=== PATIENT | male | born 1970 | race Caucasian/White ===

== ENCOUNTER 2018-01-27 12:30 | Emergency (ER) | payer BC ==
[2018-01-27 12:59] VITALS: BP 125/95; PULSE 81; TEMP 98.2; BMI 30.5
[2018-01-27] MEDS ORDERED: DIPHTH,PERTUSS(ACELL),TET 0.5 ML DISP.SYRIN IM ONE (13:03)
--- NOTE | 2018-01-27 13:23 | PDOC ---
Attending Attestation - Resident Resident Name: Corey Linton - ED Attending Attestation I have performed the following: I have examined & evaluated the patient, The case was reviewed & discussed with the resident, I agree w/resident's findings & plan, Exceptions are as noted - HPI HPI: 47 yo M presents with R index finger lacerations after he was using a grain trimmer. He states that he hit a branch, the jason kicked back and he felt it hit his finger. He presents to ED with multiple lacerations to the finger, no other injuries. - Physicial Exam PE: GENERAL: Awake, alert, and fully oriented, in no acute distress HEAD: No signs of trauma EYES: PERRLA, EOMI, sclera anicteric, conjunctiva clear ENT: Auricles normal inspection, hearing grossly normal, nares patent, oropharynx clear without exudates. Moist mucosa EXTREMITIES: Normal range of motion, no edema. No clubbing or cyanosis. No cords, erythema, or tenderness NEUROLOGICAL: Cranial nerves II through XII grossly intact. Normal speech, normal gait SKIN: Warm, Dry, normal turgor. R index finger with 4 lacerations, small areas of numbness between the lesions. Sensation to the fingertip intact. Tendon function intact. - Medical Decision Making Complicated lac repair as a result of the lacerations between very close together and at oblique angles to each other. +Hemostasis. Patient tolerated well. Small tuft fx, will treat with abx. Wound check within 48 hrs.
--- NOTE | 2018-01-27 13:25 | PDOC ---
History of Present Illness - General Chief Complaint: Laceration Stated Complaint: LACERATION Time Seen by Provider: 01/27/18 12:50 History Source: Patient Exam Limitations: No Limitations - History of Present Illness Initial Comments: 01/27/18 13:20 Patient is a 47M with a medical history of HTN here today complaining of a laceration to his finger. He was trimming a hedge with a hedgetrimmer when he hit a branch and the machine jumped back hitting his finger. He is complaining of pain to the finger and associated numbness on the medial aspect of his finger. Past History - Past Medical History Allergies/Adverse Reactions: Allergies Allergy/AdvReac Type Severity Reaction Status Date / Time No Known Allergies Allergy Verified 12/29/17 11:38 Home Medications: Ambulatory Orders Amlodipine Besylate [Norvasc -] 10 mg PO DAILY 12/29/17 Amox-Tr/K Cl [Augmentin - 875Mg Tablet] 1 tab PO BID #14 tablet 01/27/18 COPD: No HTN: Yes - Suicide/Smoking/Psychosocial Hx Smoking History: Never smoked Hx Alcohol Use: Yes Drug/Substance Use Hx: No Substance Use Type: None Review of Systems - Review of Systems Comments:: 01/27/18 13:23 GENERAL/CONSTITUTIONAL: No fever or chills. No weakness. HEAD, EYES, EARS, NOSE AND THROAT: No change in vision. No ear pain or discharge. No sore throat. CARDIOVASCULAR: No chest pain or shortness of breath RESPIRATORY: No cough, wheezing, or hemoptysis. GASTROINTESTINAL: No nausea, vomiting, diarrhea or constipation. GENITOURINARY: No dysuria, frequency, or change in urination. MUSCULOSKELETAL: + finger pain. No neck or back pain. SKIN: No rash NEUROLOGIC: No headache, vertigo, loss of consciousness, or change in strength/ sensation. ENDOCRINE: No increased thirst. No abnormal weight change HEMATOLOGIC/LYMPHATIC: No anemia, easy bleeding, or history of blood clots. ALLERGIC/IMMUNOLOGIC: No hives or skin allergy. *Physical Exam - Vital Signs Last Vital Signs Temp Pulse Resp BP Pulse Ox 98.2 F 81 15 125/95 96 01/27/18 12:45 01/27/18 12:45 01/27/18 12:45 01/27/18 12:45 01/27/18 12:45 - Physical Exam Comments: 01/27/18 13:24 GENERAL: Awake, alert, and fully oriented, in no acute distress R INDEX FINGER: 4 0.5-1.5 cm linear lacerations of distal end, decreased sensation to distal end of finger. [place]oy[place], full ROM. HEAD: No signs of trauma, normocephalic, atraumatic EYES: PERRLA, EOMI, sclera anicteric, conjunctiva clear ENT: Auricles normal inspection, hearing grossly normal, nares patent, oropharynx clear without exudates. Moist mucosa NECK: Normal ROM, supple, no lymphadenopathy, JVD, or masses LUNGS: No distress, speaks full sentences, clear to auscultation bilaterally HEART: Regular rate and rhythm, normal S1 and S2, no murmurs, rubs or gallops, peripheral pulses normal and equal bilaterally. EXTREMITIES: Normal inspection, Normal range of motion, no edema. No clubbing or cyanosis. NEUROLOGICAL: Cranial nerves II through XII grossly intact. Normal speech, normal gait, no focal sensorimotor deficits SKIN: Warm, Dry, normal turgor, no rashes or lesions noted. Procedures - Laceration/Wound Repair Right 2nd digit Wound Length: 2.6 to 5.0 cm (4 seperate lacerations totalling 4cm) Wound Explored: clean, no foreign body present Wound's Depth, Shape: superficial, flap Irrigated w/ Saline: Yes Anesthesia: 1% Lidocaine Amount of Anesthetic (ccs): 5 Wound Debrided: minimal Wound Repaired With: Sutures Suture Size/Type: 5:0 Number of Sutures: 19 Layer Closure: No Sterile Dressing Applied: Yes ED Treatment Course - RADIOLOGY Radiology Studies Ordered: Category Date Time Status FINGER(S) RIGHT [RAD] Stat Radiology 01/27/18 13:02 Ordered Medical Decision Making - Medical Decision Making 01/27/18 13:25 Patient is 47M with history of HTN here today with laceration. Vital signs normal and stable. Will do x-ray to evaluate for fracture. Will repair and treat with abx. 01/27/18 14:43 Repaired as per procedure note. Augmentin prescribed. Will instruct patient to come back in 48 hours for a wound check. X-ray shows distal fracture of digit. *DC/Admit/Observation/Transfer Diagnosis at time of Disposition: Finger laceration, Finger fracture, right - Discharge Dispostion Disposition: HOME Condition at time of disposition: Good Decision to Admit order: No - Prescriptions Prescriptions: Amox-Tr/K Cl [Augmentin - 875Mg Tablet] 1 tab PO BID #14 tablet - Referrals Referrals: Nilton Goyal MD [Primary Care Provider] - - Patient Instructions Printed Discharge Instructions: DI for Laceration Repair Additional Instructions: Please return in 48 hours for a wound check. Please have your sutures removed between 02/05/18 and 02/07/18. Please return to the ED for any new, worsening or concerning symptoms. - Post Discharge Activity
[2018-01-27] MEDS ORDERED: AMOX TR/POT CLAV 875MG/125MG TABLETS (FP) PO ONE (14:48)
[2018-01-27] MEDS ORDERED: AMOX TR/POT CLAV 875MG/125MG TABLETS (FP) ONE (14:53)
== END 2018-01-27 14:57 | disposition home or self-care (01) ==
LOC: SUPCPDRO 12:30 → FER 12:30
PROC: 3E0234Z Introduction of Serum, Toxoid and Vaccine into Muscle, Percutaneous Approach (ICD-10-PCS; principal; 2018-01-27)
PROC: 0HQFXZZ Repair Right Hand Skin, External Approach (ICD-10-PCS; 2018-01-27)
DX: S61.210A Laceration without foreign body of right index finger without damage to nail, initial encounter (principal); S62.600A Fracture of unspecified phalanx of right index finger, initial encounter for closed fracture; W29.8XXA Contact with other powered hand tools and household machinery, initial encounter; Y93.H2 Activity, gardening and landscaping; Y92.9 Unspecified place or not applicable; Y99.0 Civilian activity done for income or pay; I10 Essential (primary) hypertension
CPT/HCPCS: 73140-TC-RT-FY; 90715; 99282-25

== ENCOUNTER 2018-01-29 16:44 | Emergency (ER) | payer BC ==
[2018-01-29 17:05] VITALS: BP 141/82; PULSE 79; TEMP 98.4; BMI 30.1
--- NOTE | 2018-01-29 17:16 | PDOC ---
Suture Removal/Wound Check HPI - History of Present Illness Chief Complaint: Revisit,Wound Recheck Stated Complaint: WOUND CHECK Time Seen by Provider: 01/29/18 16:51 History Source: Yes: Patient Exam Limitations: Yes: No Limitations Treated at: [facility] ED - Previous ED Treatment Type of procedure performed on last visit: Yes: Laceration Repair - Onset of Previous Treatment Comment:: 01/29/18 17:14 Status post laceration to his right index finger 2 days prior here today for a wound check. Patient denies any fevers chills no redness no swelling pain is minimal relief with ibuprofen. He is taking antibiotics as prescribed no current concerns they're dressing is removed the wound appears to be clean dry and intact all stitches are in place there is no erythema no warmth and no drainage on the dressing distally patient has some mild decreased sensation over the lateral aspect of his finger on the radial side of his index finger tendons are intact plan continue bacitracin oral antibiotics follow-up for suture removal as directed Past History - Past Medical History Allergies/Adverse Reactions: Allergies Allergy/AdvReac Type Severity Reaction Status Date / Time No Known Allergies Allergy Verified 01/29/18 16:49 Home Medications: Ambulatory Orders Amlodipine Besylate [Norvasc -] 10 mg PO DAILY 12/29/17 Amox-Tr/K Cl [Augmentin - 875Mg Tablet] 1 tab PO BID #14 tablet 01/27/18 COPD: No HTN: Yes - Suicide/Smoking/Psychosocial Hx Smoking History: Never smoked Have you smoked in the past 12 months: No Information on smoking cessation initiated: No Hx Alcohol Use: No Drug/Substance Use Hx: No Substance Use Type: None Suture Removal/Wound Check PE - Physical Exam Laceration/Wound Check Symptoms: reports: Improved Current Severity Level: None Maximum Severity Level: None Pain Localization: None Location of Laceration/Wound: right: Finger Pain Radiation: None *Physical Exam - Vital Signs Last Vital Signs Temp Pulse Resp BP Pulse Ox 98.4 F 79 20 141/82 100 01/29/18 16:48 01/29/18 16:48 01/29/18 16:48 01/29/18 16:48 01/29/18 16:48 *DC/Admit/Observation/Transfer Diagnosis at time of Disposition: Visit for wound check - Discharge Dispostion Disposition: HOME Condition at time of disposition: Improved - Referrals - Patient Instructions Printed Discharge Instructions: How to Care for a Surgical Wound Additional Instructions: continue taking your oral antibiotics. You may now wash your hand with mild soap and water. Apply bacitracin ointment twice daily return for suture removal in 5-7 days - Post Discharge Activity
== END 2018-01-29 17:23 | disposition home or self-care (01) ==
LOC: FER 16:44
DX: Z48.01 Encounter for change or removal of surgical wound dressing (principal)
CPT/HCPCS: 99281-25